=== PATIENT | male | born 1985 ===

== ENCOUNTER 2021-03-19 19:42 | Emergency (ER) | payer MEDICAID, SELFPAY ==
[2021-03-19 20:44] LABS: MANUAL DIFF FLAG NO
[2021-03-19 20:45] LABS: Basophils Absolute Auto 0.1 X10*3/uL (0.0-0.2); Basophils Percent Auto 0.4 % (0-2); Eosinophils Absolute Auto 0.1 X10*3/uL (0.0-0.4); Hematocrit 47.7 % (42-52); Hemoglobin 15.6 g/dl (14.0-18.0); Imm Gran Abs Auto 0.06 X10*3/uL (0.00-0.03); Imm Gran Pct Auto 0.4 % (0.0-0.4); Lymphocytes Percent Auto 21.5 % (20-40); Mean Corpuscular HGB Conc 32.7 g/dl (31.0-36.0); Mean Corpuscular Hemoglobin 27.4 pg (27.0-33.0); Mean Corpuscular Volume 83.7 fL (80-98); Mean Platelet Volume 9.4 fL (9.4-12.4); Monocytes Percent Auto 6.9 % (2-11); Neutrophils Absolute Auto 9.8 X10*3/uL (2.0-8.3); Neutrophils Percent Auto 69.8 % (45-73); Platelet Count 326 X10*3/uL (160-400); Red Cell Distribution Width 12.6 % (11.0-16.0); White Blood Count 14.1 X10*3/uL (4.8-10.8)
[2021-03-19 21:00] LABS: Alanine Aminotransferase 74 U/L (0-40); Albumin Level 4.4 g/dL (3.5-5.0); Alkaline Phosphatase 92 U/L (39-117); Anion Gap 13 (12-20); Aspartate Amino Transferase 42 U/L (5-37); Bilirubin Direct < 0.2 mg/dL (0.0-0.5); Bilirubin Total 0.4 mg/dL (0.0-1.0); Blood Urea Nitrogen 15 mg/dL (9-16); Calcium 9.6 mg/dL (8.4-10.2); Carbon Dioxide 26 mmol/L (22-29); Chloride 108 mmol/L (96-108); Estimated Glomerular Filt Rate 41; Glucose Random 204 mg/dL (60-115); Lipase 88 U/L (8-78); Potassium 4.8 mmol/L (3.3-5.1); Sodium 142 mmol/L (135-145); Total Protein 7.6 g/dL (6.5-8.0)
[2021-03-19 21:21] VITALS: BP 148/85; PULSE 111; RESP 18; TEMP 36.2; O2SAT 98; BMI 39.5
[2021-03-19 22:35] LABS: Appearance Urine CLEAR; Color Urine YELLOW; Glucose Urine UA >=1000 MG/DL (NEG); Leukocyte Esterase Urine NEG (NEG); Nitrite Urine NEG (NEG); Specific Gravity - Urine 1.025 (1.005-1.025); Urine Blood NEG (NEG); Urine Ketones 5 MG/DL (NEG); Urine Protein NEG (NEG-TRACE)
[2021-03-19 22:43] LABS: Bacteria Urine 1+ /LPF; Squamous Epithelial Cell Urine 1+ /LPF
--- NOTE | 2021-03-19 22:58 | ED.ABDPAIN ---
HPI - Abdominal Pain General Chief Complaint: Abdominal Pain Stated Complaint: abd pain Time Seen by Provider: 03/19/21 22:36 Source: patient Mode of arrival: ambulatory Limitations: no limitations History of Present Illness HPI narrative: 35-year-old male who presents emergency department for evaluation of periumbilical pain x2 weeks. The patient states that he got a cortisone shot in his back approximately 2 weeks prior. He states that 2 days after the cortisone shot he developed pain in his umbilical area. Describes the pain as if someone hit him in the abdomen, the pain is constant, the pain is worse with movement and with bending, he states the pain is 8/10 at its worst. He denied fever, chills, nausea or vomiting. He has had good bowel movements and no difficulty with his urine. Review of Systems Review of Systems Yes all other systems are reviewed and are negative Physical Exam Vital Signs: Vital Signs: Last Vital Signs Temp 97.2 F 03/19/21 21:21 Pulse 111 H 03/19/21 21:21 Resp 18 03/19/21 21:21 BP 148/85 H 03/19/21 21:21 Pulse Ox 98 03/19/21 21:21 Body Mass Index 39.5 Const: General: cooperative and no acute distress Orientation/consciousness: oriented to person and oriented to place Limitations: no limitations HENMT: Head: Yes normal to inspection, Yes normocephalic and Yes atraumatic Ears: external ears normal General nose exam: Normal external nose present Face and sinus: Yes normal facial exam Mouth: Normal oral and palatal mucosa present Throat: Yes posterior oropharynx normal Eyes: General: appearance normal, both eyes and all related structures Pupils: Equal, round and reactive pupils present Neck: Neck: Yes normal visual inspection, Yes no lymphadenopathy, Yes trachea midline and Yes supple Chest: Chest palpation & inspection: normal inspection of the chest and normal palpation of entire chest wall Resp: Effort & Inspection: normal respiratory effort and able to speak in complete sentences Auscultation: clear to auscultation bilaterally Cardio: Rate: regular rate Rhythm: regular rhythm Heart sounds: S1 normal heart sound present, S2 normal heart sound present and no murmurs GI: Inspection: Yes normal to inspection Palpation (GI): Soft to palpation, Tenderness to palpation present (GI) periumbilically (Small, reducible umbilical hernia which is tender to palpation.) and no guarding Auscultation: normal bowel sounds : General: Yes no CVA tenderness Back/Spine/Pelvis: Back: no CVA tenderness Skin: General skin exam: no rashes or lesions noted Neuro: General: oriented to person and oriented to place Cranial nerves: Yes CN's II-XII intact bilaterally and Yes Equal, round and reactive pupils present Cognition (Neuro): normal cognition Motor exam (neuro): 5/5 motor strength present throughout Extrem: General: Yes normal to inspection Psych: Appearance: grossly normal Speech and movement: Normal speech and movement present Affect: normal affect Attitude: cooperative Thought process: Normal thought process present Thought content: Normal thought content present Course Course Course Narrative: 35-year-old male who presents emergency department for evaluation of periumbilical pain x2 weeks. The patient's physical examination did reveal a small umbilical hernia which is reducible but tender to palpation. I did discuss this with the patient. Patient's laboratory evaluation is consistent with his chronic kidney injury, has an elevated glucose of 204, slight elevation in his AST and ALT of 42 and 74 [place] [address]. At this time I do not think the patient has incarcerated hernia. He was advised to take Tylenol for the pain. He will be referred to our on-call surgeon. He was discharged home. MDM - Abdominal Pain Lab Data Result diagrams: 03/19/21 20:38 03/19/21 20:38 Labs: Lab Results 03/19/21 03/19/21 03/19/21 Range/Units 20:38 20:38 22:28 WBC 14.1 H (4.8-10.8) X10*3/uL RBC 5.70 (4.60-5.80) X10*6/uL Hgb 15.6 (14.0-18.0) g/dl Hct 47.7 (42-52) % MCV 83.7 (80-98) fL MCH 27.4 (27.0-33.0) pg MCHC 32.7 (31.0-36.0) g/dl RDW 12.6 (11.0-16.0) % Plt Count 326 (160-400) X10*3/uL MPV 9.4 (9.4-12.4) fL Immature Gran % (Auto) 0.4 (0.0-0.4) % Neut % (Auto) 69.8 (45-73) % Lymph % (Auto) 21.5 (20-40) % Glades % (Auto) 6.9 (2-11) % Eos % (Auto) 1.0 (0-4) % Baso % (Auto) 0.4 (0-2) % Lymph # (Auto) 3.0 (1.2-4.9) X10*3/uL Glades # (Auto) 1.0 (0.1-1.2) X10*3/uL Eos # (Auto) 0.1 (0.0-0.4) X10*3/uL Baso # (Auto) 0.1 (0.0-0.2) X10*3/uL Abs Immat Gran (auto) 0.06 H (0.00-0.03) X10*3/uL Absolute Neuts (auto) 9.8 H (2.0-8.3) X10*3/uL Absolute Nucleated RBC 0.000 (0.0-0.012) X10*3/uL Nucleated RBC % (auto) 0.0 (0.0-0.2) /100WBC Sodium 142 (135-145) mmol/L Potassium 4.8 (3.3-5.1) mmol/L Chloride 108 (96-108) mmol/L Carbon Dioxide 26 (22-29) mmol/L Anion Gap 13 (12-20) BUN 15 (9-16) mg/dL Creatinine 1.89 H (0.5-1.4) mg/dL Estim Creat Clear Calc TNP Estimated GFR 41 Random Glucose 204 H (60-115) mg/dL Calcium 9.6 (8.4-10.2) mg/dL Total Bilirubin 0.4 (0.0-1.0) mg/dL Direct Bilirubin < 0.2 (0.0-0.5) mg/dL AST 42 H (5-37) U/L ALT 74 H (0-40) U/L Alkaline Phosphatase 92 (39-117) U/L Total Protein 7.6 (6.5-8.0) g/dL Albumin 4.4 (3.5-5.0) g/dL Lipase 88 H (8-78) U/L Urine Color YELLOW Urine Appearance CLEAR Urine pH 6.0 (5.0-8.0) Ur Specific Pinson 1.025 (1.005-1.025) Urine Protein NEG (NEG-TRACE) MG/DL Urine Glucose (UA) >=1000 H (NEG) MG/DL Urine Ketones 5 (NEG) MG/DL Urine Blood NEG (NEG) Urine Nitrite NEG (NEG) Ur Leukocyte Esterase NEG (NEG) Urine RBC 1-4 (0) /HPF Urine WBC 1-4 (0-4) /HPF Ur Squamous Epith Cells 1+ /LPF Urine Bacteria 1+ /LPF Discharge Plan Discharge Clinical Impression: Hernia, umbilical Qualifiers: Obstruction and gangrene presence: without obstruction or gangrene Qualified Code(s): K42.9 - Umbilical hernia without obstruction or gangrene Patient Disposition: Home, Self-Care Instructions: Umbilical Hernia (ED) Additional Instructions: Your examination is consistent with a belly button (umbilical) hernia Your laboratory evaluation was unremarkable. At this time I do not think that the any bowel is stuck in the hernia since that is soft and you can push the lump back in. We worry if the lump is hard and painful and cannot be pushed back in (incarcerated hernia). If this happens then you should return to the emergency department. Apply ice for 15 minutes 4 to 6 times a day to help reduce the pain over the hernia. Take Tylenol (acetaminophen) 500 mg pills, 2 pills every 4 to 6 hours as needed for pain. Follow-up with our on-call surgeon. Follow-up with your doctor in 2 days. Please return to the emergency department if your symptoms get worse or if you develop any symptoms that are concerning to you. Referrals: Lupe Christina MD [Physician] - 1 week [facility] Past Medical History [facility] Narrative: Past medical history hypertension and asthma. He also states has chronic kidney injury type 3. Surgical history: None. Social history: The patient does smoke 2-3 packs of cigarettes per day times many years. He denies alcohol use. Denies drug use. Medical History Asthma HTN (hypertension) Social History Social History Advance Directives: No Advance Directives Information Provided: No
== END 2021-03-19 23:20 | disposition home or self-care (01) ==
PROVIDERS: Emergency Provider Emergency Medicine Emergency Medical Services
DX: K42.9 Umbilical hernia without obstruction or gangrene (principal); R10.33 Periumbilical pain; Z79.899 Other long term (current) drug therapy
CPT/HCPCS: 36415; 80053; 81001; 82248; 83690; 85025; 99283

== ENCOUNTER 2023-09-14 10:50 | Emergency (ER) | payer MEDICAID, SELFPAY ==
--- NOTE | ~2023-09-14 | CT_ITS ---
EXAMINATION: CT HEAD WITHOUT CONTRAST CLINICAL INFORMATION: Right-sided headache COMPARISON: None available. TECHNIQUE: Contiguous axial imaging was performed from the skull base to vertex without intravenous administration of contrast. This CT examination was performed using dose optimization techniques as appropriate, variously including the following: *Automated exposure control *Adjustment of mA and/or kV according to patient size (this includes techniques or standardized protocols for targeted exams where dose is matched to indication/reason for exam; i.e. extremities or head) *Use of iterative reconstruction technique DLP: 18 mGy-cm FINDINGS: There is no acute intra-axial, extra-axial bleed, masses or midline shift. There is no acute infarction evolution. There is no edema. The lateral ventricles are asymmetrical but not enlarged. The johnson to white matter differentiation is maintained normal. No abnormality seen in the posterior fossa. Bone windows reveal no calvarial abnormality. There is no scalp soft tissue normality. There is large polyp left maxillary sinus and a moderate-sized polyp right maxillary sinus. Rest of paranasal sinuses and mastoid air cells are well-aerated. CT/CT head/brain wo IV con IMPRESSION: No acute intracranial process seen. Bilateral maxillary polyps and/or retention cysts.
--- NOTE | 2023-09-14 10:59 | ED_ITS ---
HPI - Headache General Chief Complaint: Headache Stated Complaint: Headache/Dizziness Time Seen by Provider: 09/14/23 12:37 History of Present Illness HPI Narrative: The patient is a 38-year-old male with a history of hypertension. He comes to the emergency room for evaluation of a headache that began about a week and a half ago. He says that he had a similar headache for months ago that lasted about a week. He did not seek medical attention of the time. On this occasion that headache is similar but somewhat more severe and longer lasting. That is why he came to the hospital today. He has not had a fever. He feels that the headache pain is primarily in the back of his neck and he feels it might be related to pains on the right side of his neck. He feels that if he moves his head that he has pain on the back of the right side of his neck. He has had no sore throat or runny nose. He has had no cough but he does feel that pain radiates from his mid back up to his head. He says he does not think that he had done anything to strain the muscles of his back or neck. He says he recently stopped weightlifting because of the pains he has been having in the upper back in the back of his neck and the headache but he says he did not think he had injured himself with weight lifting prior to the onset of the symptoms. He has been taking acetaminophen at home without relief. No visual symptoms. No difficulty speaking. No difficulty swallowing. No sore throat. No shortness of breath. No abdominal pain, nausea, vomiting. Related Data Previous Rx's Medication Instructions Recorded cyclobenzaprine 10 mg tablet 10 mg PO TID PRN muscle pain #14 09/14/23 tabs tramadol 50 mg tablet 50 mg PO Q6H PRN pain #14 tabs 09/14/23 Allergies Allergy/AdvReac Type Severity Reaction Status Date / Time shellfish derived Allergy Hives Verified 09/14/23 11:03 Review of Systems 2 Review of Systems: Yes all other systems are reviewed and are negative [facility] Past Medical History Medical History Asthma HTN (hypertension) Social History Social History Alcohol intake: never Physical Exam 2 Vital Signs: Vital Signs: Last Vital Signs Temp 98.1 F 09/14/23 17:14 Pulse 99 09/14/23 17:14 Resp 18 09/14/23 17:14 BP 140/88 H 09/14/23 17:14 Pulse Ox 98 09/14/23 17:14 O2 Del Method Room Air 09/14/23 17:14 BMI result Body Mass Index 38.3 Const: Other: The patient is a large, muscular 38-year-old who was awake and alert. He has a normal mental status. His demeanor is nontoxic. He does not appear in obvious distress or obviously ill HEENT: Other: Face is symmetrical. Pharynx is unremarkable. Eyes: Other: Pupils are round equal and reactive to light, extraocular movements intact. Neck: Other: The patient has a lot of tenderness in the right paraspinous muscles. Palpation seems to reproduce his pain. Resp: Effort & Inspection: normal respiratory effort Auscultation: clear to auscultation bilaterally Cardio: Rate: regular rate Rhythm: regular rhythm Heart sounds: S1 normal heart sound present and S2 normal heart sound present Skin: Other: Skin is dry and unremarkable Neuro: Other: The patient is awake, alert, pleasant, cooperative. The patient is appropriately oriented. His demeanor is nontoxic. Mental status is normal. Pupils are round equal and reactive, extraocular movements are intact, the face is symmetrical, speech is clear, strength is intact in all 4 extremities. No pronator drift. Finger-nose is normal. Gait is steady. Reflexes are 1+ at the knees and ankles. Extrem: Other: No calf swelling or tenderness. Course Course Course Narrative: This is a rapid medical exam: Additional HPI, ROS, PE not included below will be deferred to primary provider. Patient is a 38-year-old male presenting to the ED with complaint of neck pain with radiates to right side of head, describes pain as shocks. Denies fevers. Denies fall or other trauma. Did not take any OTC medications today. Medications Administered Discontinued Medications Generic Name Dose Route Start Last Admin Trade Name Freq PRN Reason Stop Dose Admin Acetaminophen 975 mg 09/14/23 14:04 09/14/23 14:29 Acetaminophen 325 Mg Tablet PO 09/14/23 14:05 975 mg ONCE ONE Administration Diphenhydramine HCl 25 mg 09/14/23 14:04 09/14/23 14:30 Diphenhydramine Hcl 50 Mg/Ml Vial IVPUSH 09/14/23 14:05 25 mg ONCE ONE Administration Sodium Chloride 1,000 mls @ 999 mls/hr 09/14/23 14:15 09/14/23 15:49 Ns IV 09/14/23 15:15 Infused .Q1H1M MARIELLA Infusion Ketorolac Tromethamine 10 mg 09/14/23 14:04 09/14/23 14:29 Ketorolac Tromethamine 15 Mg/Ml Vial IVPUSH 09/14/23 14:05 10 mg ONCE ONE Administration Metoclopramide HCl 10 mg 09/14/23 14:04 09/14/23 14:29 Metoclopramide Hcl 10 Mg/2 Ml Vial IVPUSH 09/14/23 14:05 10 mg ONCE ONE Administration Medical Decision Making Medical Decision Making [facility] Narrative: The patient is a 38-year-old with a history of hypertension. 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 He also has some mild renal impairment. He denies IV drug use. He says he is recently quit smoking and marijuana. He describes having an episode of a headache syndrome 4 months ago that lasted about a week. He now has a similar syndrome that has been lasting a week and a half. He describes pain on the right side of his neck radiating into the right side of his head. He denies injury. He does not have any neurological deficits I can appreciate. He is afebrile[place] [address]. However he has no left shift. In fact his differential shows 48% neutrophils, 42% lymphocytes, 7% atypical lymphs. A noncontrast head CT of the brain was done which was negative. His metabolic panel shows normal electrolytes. Creatinine is 1.42. BUN is 11. Estimated creatinine clearance is 102 are 56. Glucose 189. CRP mildly elevated at 2.6. CPK mildly elevated at 251. It is not clear exactly what is causing the patient's headache and neck pain syndrome. I do not think he has meningitis or subarachnoid hemorrhage. The additionally I do not think he has any deep space neck tissue infection. The differential on his white count certainly would argue against an acute bacterial infection of any kind. The differential could be consistent with a mono infection but a Monospot is negative. The patient was treated with a small dose of ketorolac IV, also metoclopramide and diphenhydramine and IV fluids. He felt somewhat better and felt well enough for discharge. He is trying to establish himself with a new primary care doctor at the [facility] in [place]. The patient will be discharged with the prescriptions for cyclobenzaprine and tramadol. He was advised to use acetaminophen as well. He is advised against using nonsteroidal anti-inflammatories because of his mild renal impairment. He was also advised to avoid excess sugar in his diet as I think he likely has some degree of type 2 diabetes. Lab Data 09/14/23 13:35 09/14/23 13:35 Labs: Lab Results 09/14/23 09/14/23 Range/Units 13:35 16:11 WBC 13.1 H (4.8-10.8) X10*3/uL RBC 6.10 H (4.60-5.80) X10*6/uL Hgb 16.3 (14.0-18.0) g/dl Hct 49.0 (42.0-52.0) % MCV 80.3 (80.0-98.0) fL MCH 26.7 L (27.0-33.0) pg MCHC 33.3 (31.0-36.0) g/dl RDW 12.6 (11.0-16.0) % Plt Count 294 (160-400) X10*3/uL MPV 10.3 (9.4-12.4) fL Immature Gran % (Auto) Cancelled Neut % (Auto) Cancelled Lymph % (Auto) Cancelled [place] % (Auto) Cancelled Eos % (Auto) Cancelled Baso % (Auto) Cancelled Lymph # (Auto) Cancelled [place] # (Auto) Cancelled Eos # (Auto) Cancelled Baso # (Auto) Cancelled Abs Immat Gran (auto) Cancelled Absolute Neuts (auto) Cancelled Absolute Nucleated RBC 0.000 (0.0-0.012) X10*3/uL Nucleated RBC % (auto) 0.0 (0.0-0.2) /100WBC Neutrophils % (Manual) 48 (45-73) % Band Neutrophils % 1 L (3-5) % Lymphocytes % (Manual) 42 H (20-40) % Atypical Lymphs % (Man) 7 H (0-6) % Monocytes % (Manual) 2 (2-11) % Abs Neuts (Manual) 6.4 (2.0-8.3) X10*3/uL Lymphocytes # (Manual) 5.5 H (1.2-4.9) X10*3/uL Atyp Lymphs # (Manual) 0.9 x10*3/uL Monocytes # (Manual) 0.3 (0.1-1.2) X10*3/uL Smudge Cells PRESENT Platelet Estimate NORMAL (NORMAL) Plt Morphology Comment NORMAL RBC Morphology NORMAL Smear Tech's Comments MANUAL DIFF Sodium 136 (135-145) mmol/L Potassium 4.3 (3.3-5.1) mmol/L Chloride 101 (96-108) mmol/L Carbon Dioxide 26 (22-29) mmol/L Anion Gap 13 (12-20) BUN 11 (9-16) mg/dL Creatinine 1.42 H (0.5-1.4) mg/dL Estim Creat Clear Calc 102.1 Estimated GFR 56 Random Glucose 189 H (60-115) mg/dL Calcium 9.0 D (8.4-10.2) mg/dL Magnesium 2.3 (1.6-2.6) mg/dL Total Bilirubin 0.6 (0.0-1.0) mg/dL Direct Bilirubin 0.3 (0.0-0.5) mg/dL AST 52 H (5-37) U/L ALT 78 H (0-40) U/L Alkaline Phosphatase 99 (39-117) U/L Total Creatine Kinase 251 H (38-174) U/L C-Reactive Protein 2.60 H (< or = 0.50) mg/dL Total Protein 7.7 (6.5-8.0) g/dL Albumin 3.9 (3.5-5.0) g/dL Monoscreen Negative (Negative) Influenza Type A (PCR) NEGATIVE (Negative) Influenza Type B (PCR) NEGATIVE (Negative) RSV RNA Qual (PCR) NEGATIVE (Negative) SARS-CoV-2 RNA (RT-PCR) NEGATIVE (Negative) Discharge Plan Discharge Clinical Impression: Headache, Neck pain on right side Patient Disposition: Home, Self-Care Additional Instructions: You may take 2 extra-strength acetaminophen (Tylenol) up to 3 times a day as needed for discomfort. I have also sent a prescription for a muscle relaxant medication called cyclobenzaprine (also known as Flexeril) to your pharmacy on [facility] in [place]. Additionally I have sent a pain medication called tramadol to the pharmacy as well. No driving on tramadol or cyclobenzaprine. Drink lot of fluids. Avoid ibuprofen and naproxen and other drugs in the class of nonsteroidal anti- inflammatories (NSAIDs). This includes Motrin and Aleve and Advil as well as others. Please continue your efforts to get an new primary care provider at the [facility] in [place]. I hope you can get follow up soon to discuss these episodes you have been having. Please plan on monitoring yourself for fevers. If at any point your significantly worse or develop new when concerning symptoms or significant the evaluation. Prescriptions: New tramadol 50 mg tablet 50 mg PO Q6H PRN (Reason: pain) Qty: 14 0RF cyclobenzaprine 10 mg tablet 10 mg PO TID PRN (Reason: muscle pain) Qty: 14 0RF Referrals: Kelvin Ojeda MD [Physician] - (headache, neck pain) Interventions: ED Discharge Assessment Last Done: 09/14/23 17:14 Discharge Date/Time: 09/14/23 17:15
[2023-09-14 11:00] VITALS: BP 159/87; PULSE 115; RESP 20; TEMP 36.7; O2SAT 95; BMI 38.3
--- NOTE | 2023-09-14 12:55 | ECG_ITS ---
Test Reason : NECK PAIN Blood Pressure : / mmHG Vent. Rate : 111 BPM Atrial Rate : 111 BPM P-R Int : 146 ms QRS Dur : 082 ms QT Int : 322 ms P-R-T Axes : 032 -15 004 degrees QTc Int : 437 ms Sinus tachycardia Otherwise normal ECG No previous ECGs available Referred By: Wesly Davis Electronically Signed By:PEDRO PABLO POZO MD
[2023-09-14 13:41] LABS: Hemoglobin 16.3 g/dl (14.0-18.0); Mean Corpuscular HGB Conc 33.3 g/dl (31.0-36.0); Mean Corpuscular Hemoglobin 26.7 pg (27.0-33.0); Mean Corpuscular Volume 80.3 fL (80.0-98.0); Mean Platelet Volume 10.3 fL (9.4-12.4); Platelet Count 294 X10*3/uL (160-400); Red Cell Distribution Width 12.6 % (11.0-16.0); White Blood Count 13.1 X10*3/uL (4.8-10.8)
[2023-09-14 13:59] LABS: Alanine Aminotransferase 78 U/L (0-40); Albumin Level 3.9 g/dL (3.5-5.0); Alkaline Phosphatase 99 U/L (39-117); Anion Gap 13 (12-20); Aspartate Amino Transferase 52 U/L (5-37); Bilirubin Direct 0.3 mg/dL (0.0-0.5); Bilirubin Total 0.6 mg/dL (0.0-1.0); Blood Urea Nitrogen 11 mg/dL (9-16); Carbon Dioxide 26 mmol/L (22-29); Chloride 101 mmol/L (96-108); Creatinine Clr Calc Pharmacy 102.1; Estimated Glomerular Filt Rate 56; Glucose Random 189 mg/dL (60-115); Magnesium 2.3 mg/dL (1.6-2.6); Potassium 4.3 mmol/L (3.3-5.1); Sodium 136 mmol/L (135-145); Total Protein 7.7 g/dL (6.5-8.0)
[2023-09-14 14:17] LABS: SLIDE REVIEW MANUAL DIFF
[2023-09-14 14:22] LABS: Atypical Lymph Absolute Manual 0.9 x10*3/uL; Atypical Lymphs Percent Manual 7 % (0-6); Band Neutrophils Percent 1 % (3-5); Lymphocytes Absolute Manual 5.5 X10*3/uL (1.2-4.9); Lymphocytes Percent Manual 42 % (20-40); Monocytes Absolute Manual 0.3 X10*3/uL (0.1-1.2); Monocytes Percent Manual 2 % (2-11); Neutrophils Absolute Manual 6.4 X10*3/uL (2.0-8.3); Neutrophils Percent Manual 48 % (45-73)
[2023-09-14 14:23] LABS: Platelet Estimate NORMAL (NORMAL); Platelet Morphology Comment NORMAL; RBC Morphology NORMAL; Smudge Cells PRESENT
[2023-09-14 14:24] LABS: Influenza A PCR NEGATIVE (Negative); Influenza B PCR NEGATIVE (Negative); Resp Syncy Virus RNA Qual PCR NEGATIVE (Negative); SARS COV2 PCR INHOUSE NEGATIVE (Negative)
[2023-09-14] MEDS: Ketorolac Tromethamine 15 MG/ML VIAL 10 MG IVPUSH (14:29)
[2023-09-14] MEDS: Acetaminophen 325 MG TABLET 975 MG PO (14:29)
[2023-09-14] MEDS: Metoclopramide HCl 10 MG/2 ML VIAL IVPUSH (14:29)
[2023-09-14] MEDS: 0.9 % Sodium Chloride 1,000 ML 999 ML IV (14:30)
[2023-09-14] MEDS: diphenhydrAMINE HCL 50 MG/ML VIAL 25 MG IVPUSH (14:30)
[2023-09-14 16:46] LABS: Monotest Negative (Negative)
[2023-09-14 17:14] VITALS: BP 140/88; PULSE 99; RESP 18; TEMP 36.7; O2SAT 98
== END 2023-09-14 17:15 | disposition home or self-care (01) ==
PROVIDERS: Emergency Provider Emergency Medicine
DX: R51.9 Headache, unspecified (principal); R42 Dizziness and giddiness; M54.2 Cervicalgia; R50.9 Fever, unspecified; R00.0 Tachycardia, unspecified; Z11.52 Encounter for screening for COVID-19; Z20.822 Contact with and (suspected) exposure to COVID-19; Z79.899 Other long term (current) drug therapy
CPT/HCPCS: 0241U; 36415; 70450; 80048; 80076; 82550; 83735; 85007; 85025; 85027; 86140; 86308; 93005; 96361; 96374; 96375; 99284; 99285; J1200; J1885; J2765

== ENCOUNTER → 2023-09-14 12:55 | Outpatient (BNV) | payer MEDICAID, SELFPAY | PROVIDERS: Emergency Provider Emergency Medicine; Visit Provider Internal Medicine Cardiovascular Disease | DX: R00.0 Tachycardia, unspecified (principal) | CPT/HCPCS: 93010 ==